=== PATIENT | female | born 1975 | race Caucasian/White ===

== ENCOUNTER 2016-07-27 16:34 | Emergency (ER) | payer BC ==
[2016-07-27 12:59] LABS: BASOPHILS 0.1 %; BASOPHILS ABSOLUTE 0.01 10/3/uL (0.0-0.16); HEMATOCRIT 35.8 % (36.0-48.0); HEMOGLOBIN 11.9 g/dL (12.0-16.0); IMMATURE GRANULOCYTES 0.2 %; LYMPHOCYTES 13.8 %; LYMPHOCYTES ABSOLUTE 1.36 10/3/uL (0.67-4.30); MEAN CORPUSCULAR HEMOGLOB 25.6 pg (26.0-34.0); MEAN PLATELET VOLUME 8.5 fL (9.2-13.0); MONOCYTES 8.7 %; MONOCYTES ABSOLUTE 0.85 10/3/uL (0.21-1.20); NEUTROPHILS 75.2 %; NEUTROPHILS ABSOLUTE 7.38 10/3/uL (2.02-8.40); PLATELET COUNT 292 10/3/uL (150-400); RBC DISTRIBUTION WIDTH 16.1 % (12.0-16.0); RED CELL COUNT 4.64 10/6/uL (4.0-5.6)
[2016-07-27 13:02] LABS: ER CBC TAT 0 Hrs 07 Mins; IMMATURE GRANULOCYTES ABSOLUTE 0.02 10/3/uL (0.0-0.11); MANUAL DIFF NO %; MEAN CORPUS HGB CONC 33.2 g/dL (32.0-36.0); MEAN CORPUSCULAR VOLUME 77.2 fL (80-100); WHITE BLOOD CELLS 9.8 10/3/uL (4.5-10.5)
[2016-07-27 13:07] LABS: INTERNATIONAL NORMAL RATI 1.3 UNITS (-); PARTIAL THROMBO TIME 28.8 SEC (22.5-37.2); PROTIME (NOT ORD) 16.1 SEC (12.0-14.5)
[2016-07-27 13:13] LABS: A/G RATIO 0.8 (0.7-1.9); ALBUMIN 3.6 G/DL (3.5-5.0); ALKALINE PHOSPHATASE 124 U/L (45-117); BUN (BLOOD UREA NITROGEN) 7 MG/DL (6-23); CHLORIDE, SERUM 103 MMOL/L (96-112); CO2 (CARBON DIOXIDE) 30 MMOL/L (24-34); CREATININE 0.97 MG/DL (0.55-1.02); GFR AFRICAN AMERICAN 84 ML/MIN (>=60); GFR NON AFRICAN AMERICAN 73 ML/MIN (>=60); GLOBULIN 4.4 G/DL (2.5-4.1); GLUCOSE, SERUM 126 MG/DL (60-99); POTASSIUM, SERUM 3.8 MMOL/L (3.5-5.3); SGOT(AST) 8 U/L (5-40); SGPT(ALT) 18 U/L (5-65); SODIUM, SERUM 137 MMOL/L (135-148); TOTAL BILIRUBIN 0.3 MG/DL (0-1.2)
[2016-07-27 13:33] LABS: BAND NEUTROPHILS 23 %; EOSINOPHILS 3 %; EOSINOPHILS ABSOLUTE (CALC) 0.29 10/3/uL (0.0-0.53); ER DIFF TAT 0 Hrs 38 Mins; LYMPHOCYTES 16 %; LYMPHOCYTES ABSOLUTE (CALC) 1.57 10/3/uL (0.67-4.30); MONOCYTES 9 %; MONOCYTES ABSOLUTE (CALC) 0.88 10/3/uL (0.21-1.20); NEUTROPHILS ABSOLUTE (CALC) 7.06 10/3/uL (2.02-8.40); SEGMENTED NEUTROPHIL (0) 49 %; TOTAL NUCLEATED CELLS 100
[2016-07-27 13:34] LABS: PLATELET ESTIMATE ADQ (ADEQUATE); POLYCHROMASIA 1+ (2-5/OIF) (0-1/OIF); TEARDROP SHAPED RBCS OCC (0-2/OIF)
[~2016-07-27 16:34] MED LIST: *UNABLE3; ACET500CAP PO; ANADS PO; BACDS PO; COGEN1 PO; COUMADIN10 MG PO; ELIQUIS 5 MG TAB5 MG PO; FESO4 PO; IBU800 PO; KLONO5 PO; LAMICTAL200 MG PO; LATUDA120 MG PO; LATUDA80 MG PO; LEXAPRO20 PO; LINZESS 145 M145 MCG PO; MULTIVITAMI1 PO; PROTONIX PO; RISP4 PO; RISPERDAL IM; TESSALON200 MG PO; TOPAMAX100 PO; TRAZODONE150 MG PO; TRILEPTAL600 MG PO; ULTRAM50 PO; VIST50 PO; VOLTAREN1 % TOP; VRAYLAR PO; ZOFRAN8 PO; [UNRECOGNIZED DRUG - REMARK]
[2016-08-19] MEDS ORDERED: TRINTELLIX5 MG PO (10:51)
[2016-08-19] MEDS ORDERED: NEUR300 PO (10:53)
[2016-08-19] MEDS ORDERED: ULTRAM50 PO (10:53)
[2016-08-19] MEDS ORDERED: FLUPHENAZINE5 MG PO (10:54)
[2016-08-19] MEDS ORDERED: SUPER B COMP PO (10:55)
== END 2016-07-27 17:44 | disposition home or self-care (01) ==
LOC: ER 16:34
PROVIDERS: Emergency Medicine
DX: R19.7 Diarrhea, unspecified (principal); R11.2 Nausea with vomiting, unspecified; Z79.899 Other long term (current) drug therapy
CPT/HCPCS: 36415; 80053; 85025; 85610; 85730; 86850; 86900; 86901; 96374; 99284; J2405

== ENCOUNTER 2016-08-09 20:37 | Emergency (ER) | payer BC ==
[2016-08-09 20:19] LABS: BASOPHILS 0.2 %; BASOPHILS ABSOLUTE 0.02 10/3/uL (0.0-0.16); EOSINOPHILS 5.3 %; EOSINOPHILS ABSOLUTE 0.61 10/3/uL (0.0-0.53); HEMATOCRIT 38.6 % (36.0-48.0); HEMOGLOBIN 12.6 g/dL (12.0-16.0); IMMATURE GRANULOCYTES 0.1 %; LYMPHOCYTES 22.2 %; LYMPHOCYTES ABSOLUTE 2.54 10/3/uL (0.67-4.30); MEAN CORPUS HGB CONC 32.6 g/dL (32.0-36.0); MEAN CORPUSCULAR HEMOGLOB 25.3 pg (26.0-34.0); MEAN CORPUSCULAR VOLUME 77.5 fL (80-100); MONOCYTES 6.6 %; MONOCYTES ABSOLUTE 0.75 10/3/uL (0.21-1.20); NEUTROPHILS 65.6 %; NEUTROPHILS ABSOLUTE 7.52 10/3/uL (2.02-8.40); PLATELET COUNT 340 10/3/uL (150-400); RBC DISTRIBUTION WIDTH 17.2 % (12.0-16.0); RED CELL COUNT 4.98 10/6/uL (4.0-5.6); WHITE BLOOD CELLS 11.5 10/3/uL (4.5-10.5)
[2016-08-09 20:21] LABS: IMMATURE GRANULOCYTES ABSOLUTE 0.01 10/3/uL (0.0-0.11); MANUAL DIFF NO %
[2016-08-09 20:36] LABS: BUN (BLOOD UREA NITROGEN) 10 MG/DL (6-23); CALCIUM, SERUM 9.2 MG/DL (8.5-10.4); CHLORIDE, SERUM 105 MMOL/L (96-112); CO2 (CARBON DIOXIDE) 28 MMOL/L (24-34); CREATININE 1.03 MG/DL (0.55-1.02); GFR AFRICAN AMERICAN 78 ML/MIN (>=60); GFR NON AFRICAN AMERICAN 67 ML/MIN (>=60); GLOBULIN 4.2 G/DL (2.5-4.1); GLUCOSE, SERUM 110 MG/DL (60-99); POTASSIUM, SERUM 3.7 MMOL/L (3.5-5.3); SGOT(AST) 12 U/L (5-40); SGPT(ALT) 21 U/L (5-65); SODIUM, SERUM 141 MMOL/L (135-148); TOTAL BILIRUBIN 0.3 MG/DL (0-1.2); TOTAL PROTEIN 8.2 G/DL (6.0-8.5)
[2016-08-09 20:37] LABS: ALKALINE PHOSPHATASE 137 U/L (45-117)
[2016-08-09 20:46] LABS: EOSINOPHILS 5 %; EOSINOPHILS ABSOLUTE (CALC) 0.58 10/3/uL (0.0-0.53); ER DIFF TAT 0 Hrs 31 Mins; LYMPHOCYTES 26 %; LYMPHOCYTES ABSOLUTE (CALC) 2.99 10/3/uL (0.67-4.30); MONOCYTES 3 %; MONOCYTES ABSOLUTE (CALC) 0.35 10/3/uL (0.21-1.20); NEUTROPHILS ABSOLUTE (CALC) 7.59 10/3/uL (2.02-8.40); SEGMENTED NEUTROPHIL (0) 66 %; TOTAL NUCLEATED CELLS 100
[2016-08-09 20:47] LABS: ANISOCYTOSIS 1+ (5-10/OIF) (0-5/OIF); PLATELET ESTIMATE ADQ (ADEQUATE)
[2016-08-09 20:49] LABS: INTERNATIONAL NORMAL RATI 1.1 UNITS (-); PARTIAL THROMBO TIME 27.6 SEC (22.5-37.2); PROTIME (NOT ORD) 14.3 SEC (12.0-14.5)
[2016-08-09 22:11] LABS: ASCORBIC ACID (UR NOT ORDER) NEG (NEG); BILIRUBIN, URINE NEGATIVE (NEG); ER URINALYSIS TAT 0 Hrs 16 Mins; KETONE, URINE NEGATIVE (NEG); LEUKOCYTE ESTERASE(NOT OR SMALL (NEG); NITRITE (URINE) NEG (NEG); WBC (NOT ORDERED) (RFLEX) 7 (0-5)
[2016-08-19] MEDS ORDERED: TRINTELLIX5 MG PO (10:51)
[2016-08-19] MEDS ORDERED: NEUR300 PO (10:53)
[2016-08-19] MEDS ORDERED: ULTRAM50 PO (10:53)
[2016-08-19] MEDS ORDERED: FLUPHENAZINE5 MG PO (10:54)
[2016-08-19] MEDS ORDERED: SUPER B COMP PO (10:55)
== END 2016-08-09 23:26 | disposition home or self-care (01) ==
LOC: ER 20:37
PROVIDERS: Emergency Medicine; Physician Assistant
DX: R11.2 Nausea with vomiting, unspecified (principal); R19.7 Diarrhea, unspecified; F32.9 Major depressive disorder, single episode, unspecified; F41.9 Anxiety disorder, unspecified; Z79.899 Other long term (current) drug therapy
CPT/HCPCS: 74176; 80053; 81001; 83690; 84703; 85025; 85610; 85730; 87077; 87086; 87186; 99284